=== PATIENT | male | born 1985 | race Caucasian/White ===

== ENCOUNTER 2022-09-07 04:15 | Emergency (ER) | payer SELFPAY ==
[2022-09-07] MEDS ORDERED: Midazolam 5 MG/ML SDV IM ONE (04:25)
[2022-09-07] MEDS ORDERED: Sodium Chloride 0.9% 10 ML Syringe FLUSH PRN (04:26)
[2022-09-07] MEDS ORDERED: Thiamine 200 MG/2 ML MDV IVPUSH ONE (04:26)
[2022-09-07] MEDS ORDERED: Sodium Chloride 0.9% 2.5 ML Syringe FLUSH PRN (04:26)
[2022-09-07] MEDS ORDERED: Midazolam 5 MG/ML SDV ONE (04:26)
[2022-09-07] MEDS ORDERED: Lidocaine 1% 5 ML VIAL INFILT ONE (04:26)
[2022-09-07] MEDS ORDERED: Sodium Chloride 0.9% 20 ML SDV IV PRN (04:26)
[2022-09-07] MEDS ORDERED: Diphtheria/Tetanus Toxoids,Adult (Td) 0.5 ML Syringe IM ONE (04:26)
[2022-09-07] MEDS ORDERED: Haloperidol Lactate 5 MG/ML SDV ONE ×2 (04:28→07:09)
[2022-09-07] MEDS ORDERED: Diphtheria,Pertussis(Acell),Tetanus Vaccine 0.5 ML Syringe IM ONE (04:32)
[2022-09-07] MEDS: droPERidol 5 MG/2 ML SDV IM ONE ×2 (04:46→04:48)
[2022-09-07 04:48] LABS: BASOPHILS PERCENT AUTO 0.2 % (0.0-1.5); EOSINOPHILS ABSOLUTE AUTO 0.1 K/uL (0.0-0.7); EOSINOPHILS PERCENT AUTO 0.9 % (0.0-7.0); HEMOGLOBIN 14.7 g/dL (13.0-17.0); LYMPHOCYTES ABSOLUTE AUTO 3.2 K/uL (0.6-2.4); LYMPHOCYTES PERCENT AUTO 24.9 % (16.0-40.0); MEAN CORPUSCULAR HEMOGLOBIN 30.9 pg (27.0-32.0); MEAN CORPUSCULAR HGB CONC 34.2 g/dL (31.0-37.0); MEAN CORPUSCULAR VOLUME 90.3 fL (80.0-98.0); MONOCYTES ABSOLUTE AUTO 0.8 K/uL (0.0-0.8); MONOCYTES PERCENT AUTO 6.5 % (0.0-15.0); NEUTROPHILS ABSOLUTE AUTO 8.6 K/uL (1.4-5.7); NEUTROPHILS PERCENT AUTO 67.5 % (48.0-80.0); NRBC ABSOLUTE 0 K/uL; PLATELET COUNT,PLT 286 K/uL (150-400); RED BLOOD CELL COUNT 4.76 M/uL (4.50-5.90); WHITE BLOOD CELL COUNT,WBC 12.71 K/uL (4.0-11.0)
[2022-09-07] MEDS ORDERED: Haloperidol Lactate 5 MG/ML SDV IM ONE ×2 (04:48→05:50)
[2022-09-07 05:00] LABS: INR 1.06 (0.86-1.11)
[2022-09-07 05:33] LABS: A/G RATIO 1.1 (0.9-1.6); ALBUMIN 3.8 g/dL (3.4-5.0); BILIRUBIN TOTAL 0.3 mg/dL (0.2-1.0); CALCIUM 8.6 mg/dL (8.5-10.1); CARBON DIOXIDE,CO2 24.6 mmol/L (21.0-32.0); CREATININE 1.1 mg/dL (0.8-1.3); EST CRCL DRUG DOSING (CG) 89.82 mL/min; POTASSIUM,K 3.8 mmol/L (3.5-5.1); PROTEIN TOTAL,TP 7.2 g/dL (6.4-8.2)
[2022-09-07] MEDS ORDERED: Iopamidol 755 MG/ML 500 ML Multipack Bottle IVPUSH STA (07:03)
[2022-09-07] MEDS ORDERED: diphenhydrAMINE 50 MG/ML SDV ONE (07:06)
[2022-09-07] MEDS ORDERED: LORazepam 2 MG/ML SDV ONE (07:07)
== END 2022-09-07 08:27 ==
LOC: MW.ED 04:15
DX: S01.81XA Laceration without foreign body of other part of head, initial encounter (principal); F10.929 Alcohol use, unspecified with intoxication, unspecified; Y90.8 Blood alcohol level of 240 mg/100 ml or more; Z23 Encounter for immunization; Y04.0XXA Assault by unarmed brawl or fight, initial encounter
CPT/HCPCS: 36415; 70450; 71045; 71260; 72125; 74177; 80053; 80307; 85025; 85610; 90471; 90715; 96372; 96374; 99285; J1630; J2250; J3411; J3490; Q9967; J1790